=== PATIENT | female | born 1955 | race Caucasian/White ===

== ENCOUNTER → 2016-06-14 | Outpatient (CLI) | payer BC ==
[~2016-06-14] MED LIST: ALBU1AER9 INH; ASMIN/60 INH; CRFL PO; FAMO20TA12 PO; FAMO20TA9 PO; MULT-845 PO; OMEP40CA41 PO
--- NOTE | 2016-06-14 09:08 | DIAGNOSTIC IMAGING REPORT ---
CHEST 2 VIEWS ROUTINE CLINICAL HISTORY: Cough. COMPARISON STUDY: Chest CT November 04, 2015. FINDINGS: No pneumothorax or pleural effusion is present. Cardiac size is normal. Mediastinal contours are normal. There is no evidence of pulmonary edema. Mild reticulonodular interstitial thickening is noted. There is no confluent consolidation. There is no evidence of pulmonary edema. IMPRESSION: Mild reticulonodular interstitial thickening scattered throughout the lungs. Similar findings have been shown on prior studies and raise the possibility of an atypical infection. No consolidation. Electronically signed by: Navdeep Walton M.D. 06/14/2016 9:06 AM Dictated Date/Time: 06/14/2016 9:05 AM
== END | disposition home or self-care (01) ==
LOC: C.RAD1850 08:52
PROVIDERS: ATTEND Family Medicine
DX: R05 Cough (principal); Z87.01 Personal history of pneumonia (recurrent)

== ENCOUNTER → 2016-07-02 | Outpatient (CLI) | payer BC ==
--- NOTE | 2016-07-03 08:01 | MAMMOGRAPHY REPORT ---
BILATERAL DIGITAL SCREENING MAMMOGRAM TOMOSYNTHESIS WITH CAD: 07/02/2016 CLINICAL HISTORY: Routine screening examination. TECHNIQUE: Breast tomosynthesis in addition to standard 2D mammography was performed. Current study was also evaluated with a Computer Aided Detection (CAD) system. COMPARISON: Comparison is made to exams dated: 06/30/2015 mammogram, 06/23/2013 mammogram, 06/19/2012 m ammogram, 06/14/2011 mammogram, 06/13/2010 mammogram, and 06/14/2009 ultrasound - [facility]. BREAST COMPOSITION: The tissue of both breasts is heterogeneously dense, which may obscure small ma sses. FINDINGS: No suspicious mass, architectural distortion or cluster of microcalcifications is seen. IMPRESSION: ACR BI-RADS CATEGORY 1: NEGATIVE There is no mammographic evidence of malignancy. A 1 year screening mammogram is recommended. The p atient will receive written notification of the results. Approximately 10% of breast cancers are not detected with mammography. A negative mammographic repor t should not delay biopsy if a clinically suggestive mass is present. Rebecca mei/chava:07/02/2016 16:52:51 Television Repairman: Sandy DEVINE(R)(M), [facility] letter sent: Normal 1/2 BI-RADS Code: ACR BI-RADS Category 1: Negative
== END | disposition home or self-care (01) ==
LOC: C.MAMM 07:37
PROVIDERS: ATTEND Family Medicine
DX: Z12.31 Encounter for screening mammogram for malignant neoplasm of breast (principal)

== ENCOUNTER 2016-08-30 11:23 | Emergency (ER) | payer BC ==
[~2016-08-30] VITALS: Ht 167.6 cm; Wt 66.5 kg
[~2016-08-30 11:23] MED LIST changes: -CRFL PO; -FAMO20TA9 PO; -OMEP40CA41 PO
[2016-08-30 11:25] VITALS: TEMP 36.7; Ht 167.6 cm; Wt 66.5 kg
[2016-08-30] MEDS ORDERED: OMEP40CA41 PO (11:35)
--- NOTE | 2016-08-30 12:07 | DIAGNOSTIC IMAGING REPORT ---
SINGLE VIEW CHEST CLINICAL HISTORY: Dyspnea. FINDINGS: An AP, portable, upright chest radiograph is compared to study dated 06/14/2016. Correlation is made with chest CT dated 11/04/2015. The examination is degraded by portable technique and patient rotation. The cardiomediastinal silhouette is unremarkable. The lungs and pleural spaces are clear. No pneumothorax is seen. The bony thorax is grossly intact. IMPRESSION: No active disease in the chest. Electronically signed by: Sanjay Alvarez M.D. 08/30/2016 12:06 PM Dictated Date/Time: 08/30/2016 12:05 PM
[2016-08-30 12:10] VITALS: O2SAT 95
[2016-08-30 12:19] LABS: BASO % 0.6 %; BASO ABS # 0.03 K/uL (0-0.2); COMPLETE YES; EOS % 0.4 %; HEMATOCRIT 37.3 % (37-47); IG% 0.2 %; LYMPH % 31.5 %; LYMPH ABS # 1.62 K/uL (1.2-3.4); MEAN CORPUSCULAR HEMOGLOBIN 31.1 pg (25-34); MEAN CORPUSCULAR HGB CONC 35.4 g/dl (32-36); MONO % 5.1 %; NEUT % 62.2 %; PLATELET COUNT 231 K/uL (130-400); RED BLOOD COUNT 4.24 M/uL (4.2-5.4); WHITE BLOOD COUNT 5.14 K/uL (4.8-10.8)
[2016-08-30 12:40] LABS: ALT/SGPT 26 U/L (12-78); BLOOD UREA NITROGEN 13 mg/dl (7-18); BUN/CREATININE RATIO 17.2 (10-20); CARBON DIOXIDE 25 mmol/L (21-32); CHLORIDE 109 mmol/L (98-107); CREATININE 0.78 mg/dl (0.60-1.20); GLUCOSE 84 mg/dl (70-99); POTASSIUM 3.6 mmol/L (3.5-5.1); SODIUM 142 mmol/L (136-145)
[2016-08-30 12:50] LABS: ALB/GLOB RATIO 1.1 (0.9-2); ALKALINE PHOSPHATASE 73 U/L (45-117); AST/SGOT 15 U/L (15-37); CKMB/CK RATIO 1.1 (0-3.0); THYROID STIMULATING HORMONE 0.968 uIu/ml (0.300-4.500)
[2016-08-30 13:04] LABS: PARTIAL THROMBOPLASTIN RATIO 0.9; PROTHROMBIN TIME (PATIENT) 10.4 SECONDS (9.0-12.0)
[2016-08-30 13:31] LABS: CALCIUM 9.1 mg/dl (8.5-10.1)
[2016-08-30] MEDS ORDERED: LIDOCAINE HCL 2% VISC SOLN 20 ML UDC PO STA (13:34)
[2016-08-30] MEDS ORDERED: ALUMINUM/MAGNESIUM SUSP 30 ML UDC PO STA (13:34)
[2016-08-30 16:23] VITALS: BP 120/74; PULSE 72; O2SAT 95
--- NOTE | 2016-08-30 16:30 | EMERGENCY ROOM VISIT NOTE ---
History First contact with patient: 11:34 Chief Complaint: CHEST PAIN Stated Complaint: CHEST PAINS History of Present Illness The patient is a 61 year old female who presents to the Emergency Room with complaints of shortness of breath and central chest discomfort. The patient reports that her symptoms started this morning while in bed. The patient reports that she does not sleep soundly. The patient denies any pain radiating into the back or upper chest. She does report recent bilateral shoulder pain. She did work outside on Saturday, and does not know if she overexerted herself. The patient reports that when she was walking from her work to her parking lot yesterday, she did notice worsening chest discomfort and shortness of breath. The patient denies any recent upper respiratory infection. The patient reports that she has had a recent pulmonary function test because of her shortness of breath. She was told that the test was abnormal. They wanted to repeat the test next month. The patient reports that she developed upper respiratory symptoms in April. She was admitted to our facility with a normal cardiac workup. When she had persistent cough in May, she was treated with a Z- Dusty with improvement. Patient also has a known history of GERD, and reports the pain does feel somewhat like GERD. She has had an upper endoscopy last summer that was normal. At the current time the patient rates her discomfort a 4 out of 10. She denies any fevers or chills, diaphoresis or nausea. Review of Systems HEENT: Denies dizziness, visual problems, hearing loss, tinnitus. Denies difficulty swallowing or oral lesions. PULMONARY: Denies cough, shortness of breath, sputum production or hemoptysis. CARDIOVASCULAR: Denies chest pain, palpitations, dyspnea on exertion, orthopnea or peripheral edema. GASTROINTESTINAL: Denies diarrhea, constipation, nausea, vomiting, or abdominal pain. GENITOURINARY: Denies dysuria, frequency, urgency or nocturia. NEUROLOGIC: Denies history of epilepsy, CVA, TIA or chronic headaches. MUSCULOSKELETAL: Denies history of joint tenderness/swelling. SKIN: Denies rashes or lesions. PSYCHIATRIC: Denies history of depression or mental illness. ENDOCRINE: Denies history of diabetes, thyroid disorders, abnormal hair growth or sexual dysfunction. Past Medical/Surgical History Medical Problems: (1) Bilateral pneumonia (2) Borderline hyperlipidemia (3) Fx radius head-closed (4) Lumbosacral spondylosis (5) Pneumonia (6) Thoracic degenerative disc disease Surgical Problems: (1) H/O neck surgery Family History Alzheimer's disease Cancer Hypertension Social History Smoking Status: Never Smoker Alcohol Use: occasionally Marital Status: Housing Status: lives with significant other Occupation Status: employed Current/Historical Medications Scheduled Multiple Vitamins W/ Minerals (Centrum Silver Adult 50+), 1 TAB PO QAM Omeprazole (Prilosec), 40 MG PO DAILY Allergies Coded Allergies: No Known Allergies (Unverified , 08/30/16) Physical Exam Vital Signs Date Time Temp Pulse Resp B/P Pulse Ox O2 Delivery O2 Flow Rate FiO2 08/30/16 16:23 72 12 120/74 95 Room Air 08/30/16 15:05 69 16 97/73 98 Room Air 08/30/16 14:31 117/76 08/30/16 14:00 114/73 08/30/16 13:58 72 14 97 08/30/16 13:53 89 20 96 08/30/16 13:30 111/72 08/30/16 13:23 70 18 95 08/30/16 13:07 72 18 106/72 95 Room Air 08/30/16 13:00 106/72 08/30/16 12:53 73 23 97 08/30/16 12:41 70 08/30/16 12:40 72 18 114/73 95 Room Air 08/30/16 12:32 114/73 08/30/16 12:10 95 Room Air 08/30/16 12:10 95 Room Air 08/30/16 11:25 36.7 89 18 147/84 97 Room Air Physical Exam CONSTITUTIONAL: Healthy and well nourished. Alert and oriented X 3 with positive affect. She does not appear in any acute distress. HEENT: Normocephalic, atraumatic. Pupils equal, round and reactive. Ears and nares are clear. No scleral icterus or conjunctival injection/pallor. NECK: Full active range of motion without discomfort. No JVD or carotid bruits. RESPIRATORY: Clear to auscultation bilaterally with no wheezing, crackles, rhonchi or stridor. CARDIOVASCULAR: Irregular rate and rhythm with no murmurs, rubs or gallops. GASTROINTESTINAL: Bowel sounds present in all quadrants. Soft and nontender to palpation. MUSCULOSKELETAL: Full range of motion of all joints without discomfort. INTEGUMENTARY: No rash or other significant dermatologic conditions noted. NEUROLOGIC: No focal neurologic deficits noted. Medical Decision & Procedures ER Provider Diagnostic Interpretation: My interpretation of an ECG shows a sinus arrhythmia with a normal rate of 74 bpm. there are frequent premature atrial contractions. Comparison with a prior ECG dated 09/16/15 shows a more regular sinus rhythm. Repeat ECG in the emergency department after approximately 3.5 hours showed a regular normal sinus rhythm of 67 bpm without PACs or ST elevation. My interpretation of a portable chest x-ray does not show any consolidations, pneumothorax or cardiac prominence. Radiologist report is as follows: SINGLE VIEW CHEST CLINICAL HISTORY: Dyspnea. FINDINGS: An AP, portable, upright chest radiograph is compared to study dated 06/14/2016. Correlation is made with chest CT dated 11/04/2015. The examination is degraded by portable technique and patient rotation. The cardiomediastinal silhouette is unremarkable. The lungs and pleural spaces are clear. No pneumothorax is seen. The bony thorax is grossly intact. IMPRESSION: No active disease in the chest. Laboratory Results 08/30/16 12:10 Red Blood Count 4.24, Mean Corpuscular Volume 88.0, Mean Corpuscular Hemoglobin 31.1, Mean Corpuscular Hemoglobin Concent 35.4, Mean Platelet Volume 10.0, Neutrophils (%) (Auto) 62.2, Lymphocytes (%) (Auto) 31.5, Monocytes (%) (Auto) 5.1, Eosinophils (%) (Auto) 0.4, Basophils (%) (Auto) 0.6, Neutrophils # (Auto) 3.20, Lymphocytes # (Auto) 1.62, Monocytes # (Auto) 0.26, Eosinophils # (Auto) 0.02, Basophils # (Auto) 0.03 08/30/16 12:10 Test 08/30/16 12:10 08/30/16 15:08 White Blood Count 5.14 K/uL (4.8-10.8) Red Blood Count 4.24 M/uL (4.2-5.4) Hemoglobin 13.2 g/dL (12.0-16.0) Hematocrit 37.3 % (37-47) Mean Corpuscular Volume 88.0 fL (80-100) Mean Corpuscular Hemoglobin 31.1 pg (25-34) Mean Corpuscular Hemoglobin Concent 35.4 g/dl (32-36) Platelet Count 231 K/uL (130-400) Mean Platelet Volume 10.0 fL (7.4-10.4) Neutrophils (%) (Auto) 62.2 % Lymphocytes (%) (Auto) 31.5 % Monocytes (%) (Auto) 5.1 % Eosinophils (%) (Auto) 0.4 % Basophils (%) (Auto) 0.6 % Neutrophils # (Auto) 3.20 K/uL (1.4-6.5) Lymphocytes # (Auto) 1.62 K/uL (1.2-3.4) Monocytes # (Auto) 0.26 K/uL (0.11-0.59) Eosinophils # (Auto) 0.02 K/uL (0-0.5) Basophils # (Auto) 0.03 K/uL (0-0.2) RDW Standard Deviation 41.0 fL (36.4-46.3) RDW Coefficient of Variation 12.7 % (11.5-14.5) Immature Granulocyte % (Auto) 0.2 % Immature Granulocyte # (Auto) 0.01 K/uL (0.00-0.02) Prothrombin Time 10.4 SECONDS (9.0-12.0) Prothromb Time International Ratio 1.0 (0.9-1.1) Activated Partial Thromboplast Time 23.6 SECONDS (21.0-31.0) Partial Thromboplastin Ratio 0.9 D-Dimer 310 ug/L FEU (0-500) Anion Gap 8.0 mmol/L (3-11) Est Creatinine Clear Calc Drug Dose 71.8 ml/min Estimated GFR () 95.8 Estimated GFR (Non- 82.6 BUN/Creatinine Ratio 17.2 (10-20) Calcium Level 9.1 mg/dl (8.5-10.1) Total Bilirubin 0.3 mg/dl (0.2-1) Aspartate Amino Transf (AST/SGOT) 15 U/L (15-37) Alanine Aminotransferase (ALT/SGPT) 26 U/L (12-78) Alkaline Phosphatase 73 U/L (45-117) Total Creatine Kinase 76 U/L (26-192) Creatine Kinase MB 0.8 ng/ml (0.5-3.6) Creatine Kinase MB Ratio 1.1 (0-3.0) Pro-B-Type Natriuretic Peptide 81 pg/ml (0-900) Total Protein 7.1 gm/dl (6.4-8.2) Albumin 3.7 gm/dl (3.4-5.0) Globulin 3.4 gm/dl (2.5-4.0) Albumin/Globulin Ratio 1.1 (0.9-2) Thyroid Stimulating Hormone (TSH) 0.968 uIu/ml (0.300-4.500) Troponin I < 0.015 ng/ml (0-0.045) Medications Administered Medications (Trade) Dose Ordered Sig/Lyla Route Start Time Stop Time Status Last Admin Dose Admin Lidocaine HCl (Viscous Lidocaine 2% Soln) 10 ml NOW STAT PO 08/30/16 13:34 08/30/16 13:35 DC 08/30/16 13:52 10 ML Al Hydroxide/Mg Hydroxide (Maalox Susp) 30 ml NOW STAT PO 08/30/16 13:34 08/30/16 13:35 DC 08/30/16 13:51 30 ML ED Course Patient history and physical exam were performed. Nurse's notes were reviewed. Vital signs were reviewed and normal. O2 saturation is 97% on room air. IV access was established, and labs were drawn. ECG and portable chest x-ray were normal. Review of labs showed no acute abnormalities. Troponin and d-dimer were normal. After this workup was complete, a trial of GI cocktail was administered without any relief. Did suggest repeating ECG and troponin, and the patient was in agreement. Repeat ECG showed a regular normal sinus rhythm and continued normal troponin. The case was discussed with Dr. Bower, ED attending physician, who agrees with outpatient cardiology follow-up. The patient was encouraged to contact her PCP or metal melter within the next 2-3 days. She was instructed to avoid any strenuous activities. I did explain to the patient that I highly suspect that her symptoms are secondary to reflux, esophagitis, gastritis or similar etiology. I did encourage her to try taking Zantac 150 mg twice a day, and Maalox/Gaviscon as needed for additional symptomatic relief. Return to the emergency department for any progressively worsening chest pain, shortness of breath, diaphoresis, nausea or other concerning symptoms. The patient was happy with plan of care, voiced understanding of all discharge instructions, and denied any significant discomfort at the time of discharge. Medical Decision See previous section. The patient's workup today is not suggestive of myocardial infarction. I do feel that the patient is at low risk for PE given normal d-dimer. Chest x-ray does not suggest pneumonia, pneumothorax, cardiomegaly or subdiaphragmatic air. The patient does have a history of GERD, and although she did not have any relief with the GI cocktail, I suspect that her symptoms are secondary to similar etiology. At this point, I do not feel that hospitalist evaluation, observation or admission is needed. The patient reports that she will return for any worsening symptoms. Impression Primary Impression: Chest pain, central Additional Impression: History of gastroesophageal reflux (GERD) Departure Information Referrals Ashlyn Boogie M.D. (PCP) Patient Instructions My [facility] Problem Qualifiers
== END 2016-08-30 16:28 | disposition home or self-care (01) ==
LOC: C.EDB 11:25 → C.EDA 16:28
DX: R07.9 Chest pain, unspecified (principal); K21.9 Gastro-esophageal reflux disease without esophagitis; E78.5 Hyperlipidemia, unspecified; Z87.81 Personal history of (healed) traumatic fracture; M51.24 Other intervertebral disc displacement, thoracic region; Z98.890 Other specified postprocedural states; Z79.899 Other long term (current) drug therapy; Z80.9 Family history of malignant neoplasm, unspecified; Z82.49 Family history of ischemic heart disease and other diseases of the circulatory system

== ENCOUNTER 2017-01-18 07:24 | Emergency (ER) | payer BC ==
[~2017-01-18] VITALS: Ht 167.6 cm; Wt 66.4 kg
[~2017-01-18 07:24] MED LIST changes: -ALBU1AER9 INH; -ASMIN/60 INH; -FAMO20TA12 PO; +OMEP40CA41 PO
[2017-01-18 07:25] VITALS: TEMP 36.9; Ht 167.6 cm; Wt 66.4 kg
[2017-01-18] MEDS ORDERED: SODIUM CHLORIDE 0.9% 1000ML 1,000 ML IV STA (07:45)
--- NOTE | 2017-01-18 07:50 | EMERGENCY ROOM VISIT NOTE ---
History First contact with patient: 07:30 Chief Complaint: CHEST PAIN Stated Complaint: CHEST PAIN Nursing Triage Summary: Pt c/o mid sternal cp that began 0330 this am. SOB. Cough x 2 days, non productive. Hx GERD and Pneumonia History of Present Illness The patient is a 61 year old female who presents to the Emergency Room with complaints of chest pain. The patient states that she has had a cough for a few days. She states that her granddaughter had an upper respiratory tract infection. She states that she was coughing during the night and around 3:30 AM developed substernal chest pain. She states it is associated with shortness of breath. The dyspnea is worse with exertion. The chest pain is worse with movement, changes position and activity. The patient states the pain is constant. She rates her discomfort an 8/10. The patient has had similar episodes in the past and has been diagnosed with pneumonia and GERD. The patient's sister has a history of sarcoidosis. The patient denies any fevers or chills. She denies any abdominal pain, nausea or vomiting. The patient denies any swelling or pain in the extremities. She denies any recent travel or surgery. She denies any personal or family history of DVT or PE. She had a stress test approximately 2 years ago which was negative. She denies any personal history of coronary artery disease, diabetes, hypertension or hyperlipidemia. She denies any family history of coronary artery disease. Review of Systems A 10 system review of systems was completed with positives and pertinent negatives listed in the HPI. Past Medical/Surgical History Medical Problems: (1) Bilateral pneumonia (2) Borderline hyperlipidemia (3) Fx radius head-closed (4) Lumbosacral spondylosis (5) Pneumonia (6) Thoracic degenerative disc disease Surgical Problems: (1) H/O neck surgery Family History Alzheimer's disease Cancer Hypertension Social History Smoking Status: Never Smoker Alcohol Use: occasionally Marital Status: Housing Status: lives with significant other Occupation Status: employed Current/Historical Medications Scheduled Famotidine (Pepcid), 20 MG PO QPM Sucralfate (Carafate), 10 ML PO BID Physical Exam Vital Signs Date Time Temp Pulse Resp B/P (MAP) Pulse Ox O2 Delivery O2 Flow Rate FiO2 01/18/17 10:44 82 16 130/77 96 01/18/17 08:50 78 16 113/72 96 Room Air 01/18/17 08:07 83 01/18/17 07:29 97 Room Air 01/18/17 07:25 36.9 95 16 134/76 96 Room Air Physical Exam VITALS: Vitals are noted on the nurse's note and reviewed by myself. Vital signs stable. The patient is afebrile. She is not tachycardic, tachypneic or hypoxic. GENERAL: [age]-year-old female, in no acute distress, nondiaphoretic, well- developed well-nourished. SKIN: The skin was without rashes, erythema, edema, or bruising. There is no tenting of the skin. Capillary reflex less than 2 seconds. HEAD: Normocephalic atraumatic. EARS: External auditory canals clear, tympanic membranes pearly johansen without erythema or effusion bilaterally. EYES: Pupils equal round and reactive to light and accommodation. Conjunctivae without injection, sclerae without icterus. Extraocular movements intact. NOSE: Patent, turbinates without inflammation or discharge. MOUTH: Mucous membranes moist. Tonsils are not enlarged. Pharynx without erythema or exudate. Uvula midline. Airway patent. Tongue does not deviate. NECK: Supple without nuchal rigidity. No JVD. HEART: Regular rate and rhythm without murmurs gallops or rubs. LUNGS: There are bibasilar mild rales appreciated to auscultation. No retractions or accessory muscle use. ABDOMEN: Positive bowel sounds x 4. Soft, nontender, without masses or organomegaly. MUSCULOSKELETAL: No muscle atrophy, erythema, or edema noted. Full range of motion in all extremities. Strength 5/5 throughout. NEURO: Patient was alert and oriented to person place and time. No focal neurological deficits. Medical Decision & Procedures ER Provider Diagnostic Interpretation: SINGLE VIEW CHEST CLINICAL HISTORY: Atypical chest pain. FINDINGS: An AP, portable, upright chest radiograph is compared to study dated 08/30/2016. The examination is degraded by portable technique and patient rotation. The cardiomediastinal silhouette is unremarkable. The lungs and pleural spaces are clear. No pneumothorax is seen. The bony thorax is grossly intact. IMPRESSION: No active disease in the chest. Laboratory Results 01/18/17 07:50 Red Blood Count 4.20, Mean Corpuscular Volume 88.6, Mean Corpuscular Hemoglobin 31.9, Mean Corpuscular Hemoglobin Concent 36.0, Mean Platelet Volume 10.1, Neutrophils (%) (Auto) 65.0, Lymphocytes (%) (Auto) 24.5, Monocytes (%) (Auto) 8.4, Eosinophils (%) (Auto) 1.7, Basophils (%) (Auto) 0.2, Neutrophils # (Auto) 3.50, Lymphocytes # (Auto) 1.32, Monocytes # (Auto) 0.45, Eosinophils # (Auto) 0.09, Basophils # (Auto) 0.01 01/18/17 07:50 Test 01/18/17 07:50 01/18/17 07:55 01/18/17 09:30 White Blood Count 5.38 K/uL (4.8-10.8) Red Blood Count 4.20 M/uL (4.2-5.4) Hemoglobin 13.4 g/dL (12.0-16.0) Hematocrit 37.2 % (37-47) Mean Corpuscular Volume 88.6 fL (80-100) Mean Corpuscular Hemoglobin 31.9 pg (25-34) Mean Corpuscular Hemoglobin Concent 36.0 g/dl (32-36) Platelet Count 206 K/uL (130-400) Mean Platelet Volume 10.1 fL (7.4-10.4) Neutrophils (%) (Auto) 65.0 % Lymphocytes (%) (Auto) 24.5 % Monocytes (%) (Auto) 8.4 % Eosinophils (%) (Auto) 1.7 % Basophils (%) (Auto) 0.2 % Neutrophils # (Auto) 3.50 K/uL (1.4-6.5) Lymphocytes # (Auto) 1.32 K/uL (1.2-3.4) Monocytes # (Auto) 0.45 K/uL (0.11-0.59) Eosinophils # (Auto) 0.09 K/uL (0-0.5) Basophils # (Auto) 0.01 K/uL (0-0.2) RDW Standard Deviation 42.0 fL (36.4-46.3) RDW Coefficient of Variation 13.1 % (11.5-14.5) Immature Granulocyte % (Auto) 0.2 % Immature Granulocyte # (Auto) 0.01 K/uL (0.00-0.02) Prothrombin Time 10.0 SECONDS (9.0-12.0) Prothromb Time International Ratio 0.9 (0.9-1.1) Activated Partial Thromboplast Time 24.7 SECONDS (21.0-31.0) Partial Thromboplastin Ratio 1.0 D-Dimer 270 ug/L FEU (0-500) Anion Gap 6.0 mmol/L (3-11) Est Creatinine Clear Calc Drug Dose 61.5 ml/min Estimated GFR () 79.5 Estimated GFR (Non- 68.6 BUN/Creatinine Ratio 11.2 (10-20) Calcium Level 9.0 mg/dl (8.5-10.1) Magnesium Level 2.2 mg/dl (1.8-2.4) Total Bilirubin 0.4 mg/dl (0.2-1) Aspartate Amino Transf (AST/SGOT) 14 U/L (15-37) Alanine Aminotransferase (ALT/SGPT) 16 U/L (12-78) Alkaline Phosphatase 82 U/L (45-117) Total Protein 7.4 gm/dl (6.4-8.2) Albumin 3.8 gm/dl (3.4-5.0) Globulin 3.6 gm/dl (2.5-4.0) Albumin/Globulin Ratio 1.1 (0.9-2) Thyroid Stimulating Hormone (TSH) 1.470 uIu/ml (0.300-4.500) Urine Color YELLOW Urine Appearance CLEAR (CLEAR) Urine pH 6.5 (4.5-7.5) Urine Specific Randolph 1.007 (1.000-1.030) Urine Protein NEG (NEG) Urine Glucose (UA) NEG (NEG) Urine Ketones NEG (NEG) Urine Occult Blood NEG (NEG) Urine Nitrite NEG (NEG) Urine Bilirubin NEG (NEG) Urine Urobilinogen NEG (NEG) Urine Leukocyte Esterase SMALL (NEG) Urine WBC (Auto) 1-5 /hpf (0-5) Urine RBC (Auto) 0-4 /hpf (0-4) Urine Hyaline Casts (Auto) 0 /lpf (0-5) Urine Epithelial Cells (Auto) 0-5 /lpf (0-5) Urine Bacteria (Auto) NEG (NEG) Troponin I < 0.015 ng/ml (0-0.045) Medications Administered Medications (Trade) Dose Ordered Sig/Lyla Route Start Time Stop Time Status Last Admin Dose Admin Sodium Chloride 1,000 ml @ 125 mls/hr Q8H STAT IV 01/18/17 07:45 01/18/17 11:09 DC 01/18/17 08:04 125 MLS/HR Procedure The patient was monitored on a quality assurance monitor. They maintained a normal sinus rhythm without ectopy. ECG Indication: chest pain Rate (beats per minute): 89 Rhythm: normal sinus Findings: nonspecific-ST abn Change: no significant change ED Course The patient was seen and examined. Previous visits were reviewed. The patient does not have a fever or leukocytosis. She does not have any significant electrolyte abnormalities. Initial troponin and repeat troponin were both negative. The second troponin was 6 hours after the onset of pain. TSH was within normal limits. INR was 0.9. D-dimer was negative. Urinalysis was negative. EKG does not reveal any acute arrhythmia or ischemia. Chest x-ray does not reveal any acute abnormality The patient was hydrated normal saline. The patient presents to the emergency department with substernal chest pain. She has had a cough. There is no evidence for pneumonia on chest x-ray. She stated that she had been coughing overnight and then woke up and noticed the pain. It is possible that this could be musculoskeletal in nature. Additionally, the patient has a history of GERD. She states it feels more similar to her exacerbations of GERD. She has taken herself off of omeprazole because she has read of the possible side effects of the medication. She has been taking famotidine. I recommended that we try Carafate. The patient was agreeable to this and was given a prescription. The patient should follow-up with her family doctor on Saturday and she has an appointment scheduled. She should also follow-up with gastroenterology if symptoms persist. She should return to the emergency department sooner with any worsening pain. The case was discussed with Dr. Harvey who agrees with the assessment and management plan. Medical Decision DIFFERENTIAL DIAGNOSIS: Aortic dissection, myocarditis, pericarditis, cervical disc disease, costochondritis, herpes zoster, rib fracture, pleuritis, pneumonia , pulmonary embolus, tension pneumothorax, anxiety disorder, somatoform disorder , choledocholithiasis, status, esophagitis, esophageal spasm, esophageal reflux , esophageal rupture, pancreatitis, peptic ulcer disease, cardiac ischemia, ST elevation [place], acute coronary syndrome, arrhythmia, coronary artery vasospasm. vavular heart disease, coronary artery disease, among others. [place] Drug Monitoring Program Search Results: patient reviewed within database Medication Reconcilliation Current Medication List: was personally reviewed by me Blood Pressure Screening Patient's blood pressure: Normal blood pressure Blood pressure disposition: Did not require urgent referral Impression Primary Impression: Substernal precordial chest pain Additional Impressions: GERD (gastroesophageal reflux disease) Cough Departure Information Dispostion Home / Self-Care Condition GOOD Prescriptions Sucralfate (CARAFATE) 1 Gm/10 Ml Akua 10 ML PO BID for 10 Days, #200 ML 1 Refill Prov: Soraya Juarez PA-C 01/18/17 Referrals Ashlyn Boogie M.D. (PCP) Patient Instructions Chest Pain - [facility], ED GERD, My [facility] Additional Instructions Try Carafate for GERD symptoms Follow up with your family doctor on Saturday as scheduled Return to the emergency department sooner with any worsening pain, fevers, productive cough or generalized worsening symptoms Problem Qualifiers
[2017-01-18 08:02] LABS: BASO % 0.2 %; BASO ABS # 0.01 K/uL (0-0.2); COMPLETE YES; EOS % 1.7 %; HEMATOCRIT 37.2 % (37-47); IG% 0.2 %; LYMPH % 24.5 %; LYMPH ABS # 1.32 K/uL (1.2-3.4); MEAN CELL VOLUME 88.6 fL (80-100); MEAN CORPUSCULAR HEMOGLOBIN 31.9 pg (25-34); MEAN PLATELET VOLUME 10.1 fL (7.4-10.4); MONO % 8.4 %; PLATELET COUNT 206 K/uL (130-400); WHITE BLOOD COUNT 5.38 K/uL (4.8-10.8)
[2017-01-18 08:11] LABS: URINE APPEARANCE CLEAR (CLEAR); URINE BILIRUBIN NEG (NEG); URINE COLOR YELLOW; URINE EPITHELIAL CELL AUTO 0-5 /lpf (0-5); URINE NITRITE NEG (NEG); URINE PH 6.5 (4.5-7.5); URINE SPECIFIC GRAVITY 1.007 (1.000-1.030); UROBILINOGEN NEG (NEG); ZZUR CULT IF INDIC CLEAN CATCH NO
[2017-01-18 08:13] LABS: MANUAL MICROSCOPIC REQUIRED? NO; REVIEW REQ? NO
--- NOTE | 2017-01-18 08:13 | DIAGNOSTIC IMAGING REPORT ---
SINGLE VIEW CHEST CLINICAL HISTORY: Atypical chest pain. FINDINGS: An AP, portable, upright chest radiograph is compared to study dated 08/30/2016. The examination is degraded by portable technique and patient rotation. The cardiomediastinal silhouette is unremarkable. The lungs and pleural spaces are clear. No pneumothorax is seen. The bony thorax is grossly intact. IMPRESSION: No active disease in the chest. Electronically signed by: Sanjay Alvarez M.D. 01/18/2017 8:12 AM Dictated Date/Time: 01/18/2017 8:11 AM
[2017-01-18 08:21] LABS: ALT/SGPT 16 U/L (12-78); BLOOD UREA NITROGEN 10 mg/dl (7-18); BUN/CREATININE RATIO 11.2 (10-20); CARBON DIOXIDE 27 mmol/L (21-32); CHLORIDE 107 mmol/L (98-107); CREATININE 0.91 mg/dl (0.60-1.20); GLUCOSE 131 mg/dl (70-99); MAGNESIUM 2.2 mg/dl (1.8-2.4); POTASSIUM 3.8 mmol/L (3.5-5.1); SODIUM 140 mmol/L (136-145)
[2017-01-18 08:29] LABS: INR 0.9 (0.9-1.1)
[2017-01-18 08:32] LABS: ALB/GLOB RATIO 1.1 (0.9-2); ALKALINE PHOSPHATASE 82 U/L (45-117); AST/SGOT 14 U/L (15-37)
[2017-01-18] MEDS ORDERED: FAMO20TA9 PO (08:37)
[2017-01-18] MEDS ORDERED: CRFL PO (10:29)
[2017-01-18 10:44] VITALS: BP 130/77; PULSE 82; O2SAT 96
== END 2017-01-18 10:44 | disposition home or self-care (01) ==
LOC: C.EDB 07:25 → C.EDA 10:44
DX: R07.2 Precordial pain (principal); K21.9 Gastro-esophageal reflux disease without esophagitis; R05 Cough; Z87.01 Personal history of pneumonia (recurrent); Z98.890 Other specified postprocedural states; Z82.0 Family history of epilepsy and other diseases of the nervous system; Z82.49 Family history of ischemic heart disease and other diseases of the circulatory system; Z79.899 Other long term (current) drug therapy

== ENCOUNTER → 2017-05-01 | Outpatient (CLI) | payer OTHER ==
[~2017-05-01] MED LIST changes: +AMOX875T PO; +ASCO1CAP3 PO; +CHOL1000 PO; +CRFL PO; +FAMO20TA9 PO; +FLUT0.15 NAE; +GUAI1TAB55 PO; -MULT-845 PO; -OMEP40CA41 PO; +PRAM0.259 PO; +PRED20TA PO
== END | disposition home or self-care (01) ==
LOC: C.LAB1850 09:22
PROVIDERS: ATTEND Internal Medicine Pulmonary Disease
DX: G25.81 Restless legs syndrome (principal)

== ENCOUNTER → 2017-07-04 | Outpatient (CLI) | payer OTHER ==
[~2017-07-04] MED LIST changes: -AMOX875T PO; -ASCO1CAP3 PO; -CHOL1000 PO; -FLUT0.15 NAE; -GUAI1TAB55 PO; -PRAM0.259 PO; -PRED20TA PO
--- NOTE | 2017-07-04 15:05 | MAMMOGRAPHY REPORT ---
BILATERAL DIGITAL SCREENING MAMMOGRAM TOMOSYNTHESIS WITH CAD: 07/04/2017 CLINICAL HISTORY: Routine screening. Patient has no complaints. TECHNIQUE: Breast tomosynthesis in addition to standard 2D mammography was performed. Current study was also evaluated with a Computer Aided Detection (CAD) system. COMPARISON: Comparison is made to exams dated: 07/02/2016 mammogram, 06/30/2015 mammogram, 06/29/2014 mamm ogram, 06/23/2013 mammogram, 06/19/2012 mammogram, and 06/14/2011 mammogram - [facility] er. BREAST COMPOSITION: The tissue of both breasts is heterogeneously dense, which may obscure small mas ses. FINDINGS: No suspicious masses, calcifications, or areas of architectural distortion are noted in ei ther breast. There has been no significant interval change compared to prior exams. IMPRESSION: ACR BI-RADS CATEGORY 1: NEGATIVE There is no mammographic evidence of malignancy. A 1 year screening mammogram is recommended. The pa tient will receive written notification of the results. Approximately 10% of breast cancers are not detected with mammography. A negative mammographic report should not delay biopsy if a clinically suggestive mass is present. Vijaya Soliz M.D. /:07/04/2017 08:28:51 Merchandise Pickup/Receiving Associate: Sandy Hurley, [facility] letter sent: Normal 1/2 BI-RADS Code: ACR BI-RADS Category 1: Negative
== END | disposition home or self-care (01) ==
LOC: C.MAMM 08:02
PROVIDERS: ATTEND Family Medicine
DX: Z12.31 Encounter for screening mammogram for malignant neoplasm of breast (principal)

== ENCOUNTER 2025-02-07 06:04 | Inpatient (IN) ==
--- NOTE | 2025-02-07 06:25 | Emergency Department Note ---
Impression & Plan Acute hypoxemic respiratory failure, Chest pain ED Provider Note NAME: ANA CHAIDEZ AGE: 69 SEX: F : 1955 ARRIVES VIA: Walk-In INFORMANT: Patient, ED PROVIDER(S): Miguel Angel Raymond MD CHIEF COMPLAINT: Chest pain MEDICAL DECISION MAKING: Patient presents due to concern for upper chest pains nonexertional which she reports feels similar to when she had developed a pneumonia. IV was established and blood work was obtained. The patient is supposed to be taking an inhaler she was trialed with a DuoNeb treatment and a dose rides as well. Initial EKG without obvious evidence of ischemia. Patient's blood work shows a normal white count hemoglobin and platelet count kidney function with a creat of 1.21. Not significantly changed from priors. Troponin negative. Patient was intermittently hypoxic Illig was feeling improved. CT angiography was performed to better evaluate the chest as the initial chest x-ray was unremarkable. CT angio of the chest no evidence of PE but calling interstitial pulmonary edema as well as nonspecific peripheral tree-in-bud airspace opacities which could be infectious or inflammatory. I did treat the patient for possible pneumonia with IV Rocephin and azithromycin. Given the patient's hypoxia additional DuoNebs ordered. I did speak the on-call hospitalist Dr. Santos. Patient was initially hesitant about staying in hospital as her has Parkinson's. Further discussion with the hospitalist though she is amenable to staying for inpatient treatment. Patient was ordered IV morphine to help with her chest pain. Critical Care: I have personally spent 45 minutes of critical care time in direct management of this patient. This includes bedside care, interpretation of diagnostic studies, and testing, discussion with consultants, patient, and family members, and other require inpatient management activities. This 45 minutes is in excess of all separately billable procedures. Discussion w/ other healthcare providers: Dr. Santos inpatient medicine service Prior /Outside records reviewed: Reviewed part of a rheumatology visit note from December 09 Dr. Brown that the patient may have microscopic polyangiitis may consider rituximab prednisone and back pain. Pending evaluation via [facility]. Differential diagnosis: Cardiac ischemia, aortic dissection, pulmonary embolism, pneumothorax, pneumonia, pericarditis, myocarditis, GERD, cholecystitis, pancreatitis, musculoskeletal, as well as other pathologies were considered. Diagnostics, as interpreted by me: ECG: Sinus, possible short SD, normal QRS, left axis deviation no obvious ST elevations. Cardiac monitoring: An order was placed for continuous cardiac monitoring. The monitor shows a rate of 89 with sinus rhythm. Patient was placed on pulse oximetry Medical decision rules: none Imaging studies: I informally interpreted the patient's chest x-ray does not show evidence of obvious pneumonia with formal report to follow. HPI: Patient presents due to concern for chest pains. The patient describes it as constant worse with taking a big deep breath and noted in the upper chest. The patient states this feels similar to when she had pneumonia back in August. The patient states that she did have a follow-up with rheumatology and Dr. Brown and thought that maybe it was some sort of inflammatory cause like microscopic polyangiitis. but to have a follow-up at [facility] and they thought that maybe it was something else including maybe a vasculitis. Patient was seen by pulmonology and the patient was to be trialed on an inhaler with steroids but has yet to obtain this but believes that her pharmacy has been to get this tomorrow. Patient denies any leg swelling or calf pain no history of DVT or PE. Patient denies any recent surgeries procedures or hospitalizations and no recent long car plane travel. The patient states that she does have an occasional cough and that her has Parkinson's and has an occasional cough but denies any fevers or chills. No leg swelling. Patient states that she does suffer from some chronic shortness of breath but this is unchanged. PAST MEDICAL HISTORY: See Below PAST SURGICAL HISTORY: See Below SOCIAL HISTORY: See Below HOME MEDICATIONS: See Below ALLERGIES: See Below VITALS: See Below PHYSICAL EXAMINATION: GENERAL: NAD, non-toxic. Wearing glasses. EYE EXAM: Normal conjunctiva. PERRL, no anisocoria and EOM's grossly intact w/o pain. OROPHARYNX: Moist mucus membranes, grossly normal dentition. NECK: Trachea midline, no stridor. LUNGS: Clear to auscultation. Normal chest wall mechanics. HEART: NSR, no MRG. ABDOMEN: Abdomen soft, non-tender, no masses, no rebound or guarding. BACK: No CVA TTP. SKIN: No rashes and no bruising. UPPER EXTREMITIES: Upper extremities are grossly normal. LOWER EXTREMITIES: Grossly normal, no edema. Negative Homans' sign bilaterally. NEURO EXAM: Awake and alert, follows commands, no obvious facial asymmetry, normal speech, moves all 4 extremities. Past Med/Surg History Problem List (Updated 02/07/25 @ 15:06 by Miguel Angel Raymond MD) Chest pain (Acute) Acute hypoxemic respiratory failure (Acute) Hypoxic respiratory failure Microscopic polyangiitis Abnormal CT scan of lung 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 Obstructive lung disease Hematuria Encounter for pre-operative examination Bilateral pneumonia Chest pain (Acute) Substernal precordial chest pain (Acute) Obstructive pattern present on pulmonary function testing Pulsatile tinnitus Sensorineural hearing loss (SNHL) of both ears Abnormal PFT Dyspnea Borderline hyperlipidemia (Chronic) no meds Lumbosacral spondylosis (Chronic) Thoracic degenerative disc disease (Chronic) COPD (chronic obstructive pulmonary disease) Tinnitus of right ear Restless leg Medical History GERD (gastroesophageal reflux disease) Pneumonia 2014 Fx radius head-closed many years ago fell on ice and used sling Surgical History H/O neck surgery Cyst removal September 1981 Family History Sister Family history of adverse reaction to anesthesia Cancer Allergies Mother Hypertension Grandfather Asthma Brother Colorectal cancer Other No family history of bleeding disorder Sarcoidosis Social History Smoking Status: Never smoker Second Hand Exposure: No; Do You Dip or Chew Tobacco: No; Hx Alcohol Use: Yes Alcohol type: wine Alcohol Intake Frequency Comment: one or twice a month Hx Substance Use: No Preferred Language: [place] Communication Ability: Effective Enterprise Integration Architect Required: No Beliefs That Will Affect Care: None marital status: Current Living Situation: Spouse Current Living Situation Comment: lives at home with current occupational status: retired Other Information That Helps Us Care for You: No Feels Safe at Home: Yes Safety Concerns: Feels Safe At This Time Assistive Devices: Glasses Allergies Allergies Allergy/AdvReac Type Severity Reaction Status Date / Time amoxicillin Allergy Intermediate hives Verified 12/09/24 08:30 Home Meds Home Medications Medication Instructions Recorded Confirmed cholecalciferol (vitamin D3) 25 25 mcg PO QPM 03/09/21 02/07/25 mcg (1,000 unit) chewable tablet (Vitamin D3) aspirin 81 mg capsule 81 mg PO QPM 06/15/24 02/07/25 omeprazole 40 mg capsule,delayed 40 mg PO DAILY 12/08/24 02/07/25 release pramipexole 0.25 mg tablet 0 mg PO HS 02/07/25 02/07/25 Previous Rx's Medication Instructions Recorded inhalational spacing device #1 ea 04/24/24 (Aerochamber MV spacer) tiotropium 2.5 mcg-olodaterol 2.5 2 puff inhalation DAILY #4 grams 11/18/24 mcg/actuation mist for inhalation (Stiolto Respimat) Results & Data (ED) Vital Signs Vital Signs - 24 hr 02/07/25 06:13 02/07/25 06:26 02/07/25 06:36 Temperature 36.8 C Temperature Source Temporal Artery Scan Pulse Rate 88 78 Pulse Rate [Right Finger] Pulse Rhythm [Right Finger] Respiratory Rate 20 17 Respiratory Effort / Characteristics Non-Labored Respiratory Depth Normal Respiratory Pattern Blood Pressure 160/92 H Blood Pressure [Right Arm] Blood Pressure Mean 114 Blood Pressure Mean [Right Arm] Pulse Oximetry 96 96 96 Oxygen Delivery Method Room Air Room Air Room Air Sepsis Recent Fever Within 48 Hours No Sepsis New/Unexplained Change in Mental Status No Sepsis Action Taken by Nursing No Action Required 02/07/25 06:36 02/07/25 07:32 02/07/25 08:31 Temperature 36.6 C Temperature Source Oral Pulse Rate 82 Pulse Rate [Right Finger] 84 84 Pulse Rhythm [Right Finger] Respiratory Rate 18 20 Respiratory Effort / Characteristics Non-Labored Spontaneous Non-Labored Respiratory Depth Normal Normal Respiratory Pattern Regular Blood Pressure Blood Pressure [Right Arm] 151/88 H 139/90 Blood Pressure Mean Blood Pressure Mean [Right Arm] 109 106 Pulse Oximetry 94 90 Oxygen Delivery Method Room Air Room Air Sepsis Recent Fever Within 48 Hours Sepsis New/Unexplained Change in Mental Status Sepsis Action Taken by Nursing 02/07/25 08:34 02/07/25 09:01 02/07/25 09:19 Temperature Temperature Source Pulse Rate Pulse Rate [Right Finger] 78 103 H Pulse Rhythm [Right Finger] Respiratory Rate 20 20 Respiratory Effort / Characteristics Non-Labored Non-Labored Respiratory Depth Normal Normal Respiratory Pattern Blood Pressure Blood Pressure [Right Arm] 147/84 H 121/75 Blood Pressure Mean Blood Pressure Mean [Right Arm] 105 90 Pulse Oximetry 92 87 L 92 Oxygen Delivery Method Room Air Room Air Room Air Sepsis Recent Fever Within 48 Hours Sepsis New/Unexplained Change in Mental Status Sepsis Action Taken by Nursing 02/07/25 10:27 Temperature Temperature Source Pulse Rate Pulse Rate [Right Finger] 98 H Pulse Rhythm [Right Finger] Regular Respiratory Rate 18 Respiratory Effort / Characteristics Respiratory Depth Normal Respiratory Pattern Blood Pressure Blood Pressure [Right Arm] 164/88 H Blood Pressure Mean Blood Pressure Mean [Right Arm] 113 Pulse Oximetry 94 Oxygen Delivery Method Room Air Sepsis Recent Fever Within 48 Hours Sepsis New/Unexplained Change in Mental Status Sepsis Action Taken by [facility] Medications Current Medication List: was personally reviewed by me Laboratory Data Attestation: I reviewed the patient's lab results. 02/07/25 06:07 02/07/25 06:07 Lab Results 02/07/25 02/07/25 Range/Units 06:07 07:35 WBC 5.28 (4.8-10.8) K/ul RBC 4.33 (4.20-5.40) M/uL Hgb 12.7 (12.0-16.0) g/dl Hct 37.3 (37.0-47.0) % MCV 86.1 (80.0-100.0) fL MCH 29.3 (25.0-34.0) pg MCHC 34.0 (32.0-36.0) g/dL RDW Std Deviation 40.2 (36.4-46.3) fL RDW Coeff of Vee 12.8 (11.5-14.5) % Plt Count 262 (130-400) K/uL MPV 10.1 (9.4-12.4) fL Immature Gran % (Auto) 0.4 % Neut % (Auto) 58.5 % Lymph % (Auto) 29.9 % [place] % (Auto) 7.6 % Eos % (Auto) 3.0 % Baso % (Auto) 0.6 % Neut # (Auto) 3.09 (1.40-6.50) K/uL Lymph # (Auto) 1.58 (1.20-3.40) K/uL [place] # (Auto) 0.40 (0.11-0.59) K/uL Eos # (Auto) 0.16 (0.00-0.50) K/uL Baso # (Auto) 0.03 (0.00-0.20) K/uL Immature Gran # (Auto) 0.02 (0.01-0.20) K/uL ESR 21 (0-30) mm/hr PT 9.8 (9.0-12.0) Seconds INR 0.9 (0.9-1.1) APTT 23 (21-31) Seconds PTT Ratio 0.8 Sodium 139 (136-145) mmol/L Potassium 4.1 (3.5-5.1) mmol/L Chloride 106 (98-107) mmol/L Carbon Dioxide 26 (21-32) mmol/L Anion Gap 7 (3-11) BUN 22 (6-23) mg/dl Creatinine 1.21 H (0.6-1.2) mg/dl Est Cr Clr Drug Dosing 43.2 ml/min eGFR 48.82 BUN/Creatinine Ratio 18.2 (10-20) Glucose 92 (70-99(Fasting)) mg/dl Calcium 9.2 (8.6-10.3) mg/dl Total Bilirubin 0.4 (0.2-1.0) mg/dl AST 14 (13-39) U/L ALT 14 (7-52) U/L Alkaline Phosphatase 71 (34-104) U/L Troponin I High Sens < 2.3 (0-14) pg/ml C-Reactive Protein 0.62 H (0-0.5) mg/dl Total Protein 7.0 (6.0-8.3) gm/dl Albumin 4.4 (3.4-5.0) gm/dl Globulin 2.6 (2.5-4.0) gm/dl Albumin/Globulin Ratio 1.7 (0.9-2) Lipase 21 (11-82) U/L SARS-CoV-2 (PCR) NEGATIVE (Negative) Influenza Type A (PCR) Negative (Neg) Influenza Type B (PCR) Negative (Neg) RSV (RT-PCR) Negative (Neg) Administered Medications Discontinued Medications Albuterol (Albut/Ipratrop 3mg/0.5mg Neb 3 Ml Vial) 3 ml NEB NOW STA; Protocol Stop: 02/07/25 06:33 Last Admin: 02/07/25 06:49 Dose: 3 ml Documented By: ABILIO Albuterol (Albut/Ipratrop 3mg/0.5mg Neb 3 Ml Vial) 6 ml NEB NOW STA; Protocol Stop: 02/07/25 08:35 Last Admin: 02/07/25 08:50 Dose: 6 ml Documented By: JEY Azithromycin (Azithromycin 250 Mg Tab) 500 mg PO NOW ONE Stop: 02/07/25 08:52 Last Admin: 02/07/25 09:15 Dose: 500 mg Documented By: JEY Ceftriaxone Sodium (Rocephin) 2,000 mg in 50 mls @ 100 mls/hr IV NOW STA Stop: 02/07/25 09:20 Last Infusion: 02/07/25 10:00 Dose: Infused Documented By: Admin: 02/07/25 09:15 Dose: 100 mls/hr Documented By: JEY Ioversol (Optiray 320 125ml) 119 ml IV ONCE ONE Stop: 02/07/25 08:17 Last Admin: 02/07/25 08:17 Dose: 119 ml Documented By: MARY Methylprednisolone (Methylprednisolone 125 Mg/2 Ml Vial) 60 mg IV NOW STA Stop: 02/07/25 06:33 Last Admin: 02/07/25 06:48 Dose: 60 mg Documented By: ABILIO Morphine Sulfate (Morphine Sulfate 4 Mg/Ml 1 Ml Carp\Vial) 4 mg IV NOW STA Stop: 02/07/25 08:35 Last Admin: 02/07/25 08:50 Dose: 4 mg Documented By: JEY Imaging Data Radiologist's Impression: Chest X-Ray 02/07/25 06:26 HISTORY: Chest pain TECHNIQUE: Portable AP radiograph of the chest COMPARISON: Chest radiograph dated 10/01/2024 FINDINGS: spinning room worker leads overlie the chest. No focal lung consolidation. No pneumothorax or pleural effusion. Normal heart size. Left-sided aortic arch. Midline trachea. No acute osseous abnormality. The included upper abdomen is unremarkable. IMPRESSION: No acute cardiopulmonary findings. Electronically signed by Dionte Demarco 02-07-2025 08:20 AM Chest CTA 02/07/25 07:40 HISTORY: Chest pain and shortness of breath. History of pneumonia. TECHNIQUE: CT angiography of the chest was performed with contrast. Coronal and sagittal 3D MIP reconstructions are provided. COMPARISON: Chest CT dated 12/02/2024. FINDINGS: Lungs: Mild intralobular septal thickening throughout both lungs may represent mild interstitial pulmonary edema. Scattered peripheral areas of tree-in-bud type airspace opacity may be infectious or inflammatory in etiology. No pneumothorax or effusion. Mild diffuse bronchial wall thickening. Heart/Mediastinum: Normal heart size. No pericardial effusion. Thoracic esophagus is unremarkable. No suspicious mediastinal or hilar lymph nodes. The thyroid gland is unremarkable. Vasculature: No evidence of acute pulmonary embolism within the limitations of contrast timing. Main pulmonary artery is normal in caliber. No aortic dissection or acute aortic process. No thoracic aortic aneurysm. Coronary artery calcifications are present with multivessel disease. Soft Tissues: Unremarkable. Upper Abdomen: Unremarkable. Bones: No acute osseous abnormality. Mild degenerative changes of the spine. IMPRESSION: 1. No evidence of acute pulmonary embolism or acute aortic process. 2. Mild interstitial pulmonary edema. 3. Scattered areas of nonspecific peripheral tree-in-bud type airspace opacity may r may be infectious or inflammatory and could represent infectious small airway disease/bronchiolitis. Follow-up chest CT can be performed in 3 months. 4. Coronary artery atherosclerotic calcifications are present. ACT 112: Positive. There are findings on this exam that require communication between the performing entity and the patient following Patient Test Result Information Act ([place] ACT 112) guidelines. Electronically signed by Dionte Demarco 02-07-2025 08:36 AM Discharge Plan Visit Data Chief Complaint: Chest Pain Stated Complaint: CHEST PAIN ED Provider: Miguel Angel Raymond Discharge Problem: Acute hypoxemic respiratory failure, Chest pain Patient Disposition: Admitted As Inpatient Condition: Good Discharge Problem: Chest pain Qualifiers: Chest pain type: unspecified Qualified Code(s): R07.9 - Chest pain, unspecified
[2025-02-07 06:49] LABS: Hematocrit (blood only) 37.3 % (37.0-47.0); Hemoglobin 12.7 g/dl (12.0-16.0); Immature Granulocytes # (auto) 0.02 K/uL (0.01-0.20); Immature Granulocytes % (auto) 0.4 %; Mean Corpuscular Hemoglobin 29.3 pg (25.0-34.0); Mean Corpuscular Volume 86.1 fL (80.0-100.0); Platelet Count 262 K/uL (130-400); RDW Standard Deviation 40.2 fL (36.4-46.3); Red Blood Count 4.33 M/uL (4.20-5.40); White Blood Count 5.28 K/ul (4.8-10.8)
[2025-02-07] MEDS: ALBUT/IPRATROP 3MG/0.5MG NEB 3 ML VIAL NEB STA ×2 (06:49→08:50)
[2025-02-07 07:08] LABS: Alanine Aminotransferase 14 U/L (7-52); Albumin Globulin Ratio 1.7 (0.9-2); Albumin Level 4.4 gm/dl (3.4-5.0); Alkaline Phosphatase 71 U/L (34-104); Anion Gap 7 (3-11); Bilirubin,Total 0.4 mg/dl (0.2-1.0); Blood Urea Nitrogen 22 mg/dl (6-23); Calcium 9.2 mg/dl (8.6-10.3); Carbon Dioxide 26 mmol/L (21-32); Chloride 106 mmol/L (98-107); Creatinine Clr Calc Pharmacy 43.2 ml/min; Globulin 2.6 gm/dl (2.5-4.0); Glucose 92 mg/dl (70-99(Fasting)); Lipase 21 U/L (11-82); Potassium 4.1 mmol/L (3.5-5.1); Sodium 139 mmol/L (136-145); Total Protein 7.0 gm/dl (6.0-8.3)
[2025-02-07 07:16] LABS: INR 0.9 (0.9-1.1); Partial Thromboplastin Time 23 Seconds (21-31); Prothrombin Time 9.8 Seconds (9.0-12.0)
[2025-02-07] MEDS: OPTIRAY 320 125ml IV ONE (08:17)
--- NOTE | 2025-02-07 08:20 | XRay Report ---
HISTORY: Chest pain TECHNIQUE: Portable AP radiograph of the chest COMPARISON: Chest radiograph dated 10/01/2024 FINDINGS: air sampling and monitoring leads overlie the chest. No focal lung consolidation. No pneumothorax or pleural effusion. Normal heart size. Left-sided aortic arch. Midline trachea. No acute osseous abnormality. The included upper abdomen is unremarkable. IMPRESSION: No acute cardiopulmonary findings. Electronically signed by Dionte Demarco 02-07-2025 08:20 AM
--- NOTE | 2025-02-07 08:36 | CT Scan Report ---
HISTORY: Chest pain and shortness of breath. History of pneumonia. TECHNIQUE: CT angiography of the chest was performed with contrast. Coronal and sagittal 3D MIP reconstructions are provided. COMPARISON: Chest CT dated 12/02/2024. FINDINGS: Lungs: Mild intralobular septal thickening throughout both lungs may represent mild interstitial pulmonary edema. Scattered peripheral areas of tree-in-bud type airspace opacity may be infectious or inflammatory in etiology. No pneumothorax or effusion. Mild diffuse bronchial wall thickening. Heart/Mediastinum: Normal heart size. No pericardial effusion. Thoracic esophagus is unremarkable. No suspicious mediastinal or hilar lymph nodes. The thyroid gland is unremarkable. Vasculature: No evidence of acute pulmonary embolism within the limitations of contrast timing. Main pulmonary artery is normal in caliber. No aortic dissection or acute aortic process. No thoracic aortic aneurysm. Coronary artery calcifications are present with multivessel disease. Soft Tissues: Unremarkable. Upper Abdomen: Unremarkable. Bones: No acute osseous abnormality. Mild degenerative changes of the spine. IMPRESSION: 1. No evidence of acute pulmonary embolism or acute aortic process. 2. Mild interstitial pulmonary edema. 3. Scattered areas of nonspecific peripheral tree-in-bud type airspace opacity may r may be infectious or inflammatory and could represent infectious small airway disease/bronchiolitis. Follow-up chest CT can be performed in 3 months. 4. Coronary artery atherosclerotic calcifications are present. ACT 112: Positive. There are findings on this exam that require communication between the performing entity and the patient following Patient Test Result Information Act ([place] ACT 112) guidelines. Electronically signed by Dionte Demarco 02-07-2025 08:36 AM
[2025-02-07 08:46] LABS: Influenza A virus by PCR Negative (Neg); Influenza B virus by PCR Negative (Neg); SARS CoV2 RNA(COVID-19) Ceph NEGATIVE (Negative)
[2025-02-07] MEDS: MoRPHine SULFATE 4 MG/ML 1 ML CARP\\VIAL IV STA (08:50)
--- NOTE | 2025-02-07 09:13 | History & Physical Report ---
Date of Service February 07, 2025 Assessment & Plan (1) Hypoxic respiratory failure: Plan: Hypoxic respiratory failure, ?microscopic polyangitis With onset of bilateral mild neck discomfort similar to her prior flares which she attributes to pneumonia. Of note this did not improve with antibiotics, but did improve after a steroid/antibiotic combination in September CTchest shows some mosaicism suspicious for inflammatory versus infectious etiology bilaterally. Read does report pulmonary edema however she has no evidence of fluid overload clinically and suspect that this is inflammatory pANCA/MPO positive on 2 separate testing events in the last 6 months 10/20/24 saw pulmonology and underwent bronchoscopy, no evidence of other hemorrhage at that time. Influenza positive. Cytology showed many PMN leukocytes, histiocytes, benign bronchial annual epithelial cells. Granulomatous inflammation/malignant cells were not noted. Patient had followed with [facility] pulmonology and had talked about a lung biopsy however deferred this as there was the chance that it would not be definitive Has followed with rheumatology at [facility], noted that her P ANCA/MPO testing at presentation is nonspecific Has been following locally with rheumatology, final recommendations over whether to pursue rituximab/prednisone/avacopan therapy pending final review from [facility] ESR 21, CRP 0.62. CRP was last 1.31 12/02/2024 She was last on steroids 10-day course 09/2024 Was treated with ceftriaxone/azithromycin for potential underlying pneumonia She does not have a leukocytosis or cough, but is dyspneic. She has no wheezing on exam Creatinine 1.21, slightly above her baseline around 1.18. She is followed for microscopic hematuria. Creatinine/BUN ratio is normal and she appears near euvolemic. - Trend creatinine daily. If rapidly uptrends/increasing proteinuria --> switch to induction therapy and d/w rheum - Methylpred 60mg IV x1 given in the ER - D/w Dr. Abbasi --> Ok to continue pred 40mg daily for now. Dr. Brown it applications manager tomorrow and to see patient - Lower suspicion for infection etiology. Will continue zpack for atypical converage, pct pending. 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 If no end organ dysfunction and clinically stable, would prefer 2-step and d/c home with o2 and outpatient f/u 02/08 if possible DVT prophylaxis: SCDs, heparin due to borderline creatinine clearance Diet: Regular Disposition: MSO CODE STATUS: Full code (2) Microscopic polyangiitis: (3) P-ANCA and MPO antibodies positive: History of Present Illness Primary Care Provider: Ashlyn Boogie MD 69yo F with history of recurrent neck pain and some exertional dyspnea under workup for pneumonia versus vasculitis for which she is seen rheumatology, [facility], and pulmonology who presents with recurrent episode of bilateral lower neck pain similar to her prior episodes of pneumonia and who continues to have shortness of breath walking up an incline plane and in the ER she has desaturations into the 80s with minimal exertion. Chart review/summary: Following with rheumatology, Dr. Brown for microscopic polyangiitis. Was anticipated to pursue treatment with rituximab/prednisone/avacopan but was awaiting final recommendations from [facility]. S/p bronchoscopy 10/20/2024. No evidence of pulmonary hemorrhage. Normal visual inspection. CTchest 09/2024 with mosaicism? Infectious versus inflammatory. Was treated with doxycycline and prednisone 50 mg burst at that time ? Pulmonary involvement with MPA. No prior evidence of tracheal/subglottic stenosis Creatinine baseline is around 1.18, creatinine on admission 1.21 Trend creatinine daily. 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 Negative infectious history except for flu A CTchest 11/2024 stable tree-in-bud clusters suggestive of chronic inflammation/infection Positive p-ANCA/MPO although this is not specific for MPA. If mild changes w ere considering steroid with or without MMF, severe would need Rituxan and lab monitoring. Repeat p-ANCA/MPO was positive. AAT was normal. Sputum culture was normal. Note follow-up suggested a lung biopsy and in absence of that to consider a steroid course and repeat CT chest chest and PFTs. Did not feel that there was a strong indication for rituximab at that time. Urology: Has been seen for microscopic hematuria. 6-month follow-up Typical MPA induction: Rituximab with 13 pulses of methylprednisolone 1 g/day x 3 days followed by prednisone 1M PK transition Lotus is seen at the bedside. End of August she came into the hospital and though she had pneumonia. "Seems to start around my neck with pain everytime. I don't cold symptoms or cough, but I get discomfort in my neck" Was diagnosed with pneumonia and was given 5 days of antibiotics. I kept trying to connect with my followup doctor, but couldn't get an appointment and came back here the next week and I was sent home with more pills, antibiotics and steroids 'and I felt great!'. I was supposed to followup with my hotbed transfer operator and contacted my home health clinical supervisor. When my home health clinical supervisor saw my records he got a hold of Dr. Dave to say he thought I had microscopic polyangiitis. I was supposed to be on some high powered drip in the hospital twice a month and some steroids, but if I felt like I needed a second opinion that was OK. I contacted [facility] twice and they dont have a solid diagnosis, but werent convinced it was MPA and could be inflammation and infection in my lungs. I was supposed to start a steroid inhaler but [facility] cannot fillthis until tomorrow and I havent gotten it. Discussed a lung biopsy with Dr. Batista, after follow up with his TECHNICAL DELIVERY MANAGER last saturday decided to do the steroid inhaler first. Last night I was feeling fine, but I woke up around 1am and felt pain in my neck area again and gets a little short up breath walking uphill but nothing much worse than normal. I ditzed around for a while, then came to the ER for possible recurrent pneumonia. Gets short of breath easily when walking on an incline plane. DOes ok. Last on steroids was September 30. No treatments since 10 day course of steroids at that time. She notes she would very much like to avoid being in the hospital since her has parkinsons and cannot walk it is important for her not to be away from home. Medical History: Reviewed Medications: Reviewed Surgical History: Reviewed Family history: Reviewed Allergies: Reviewed Social History: No tobacco use Code Status: Full Code Allergies Allergy/AdvReac Type Severity Reaction Status Date / Time amoxicillin Allergy Intermediate hives Verified 12/09/24 08:30 Home Medications Medication Instructions Recorded Confirmed Type cholecalciferol (vitamin D3) 25 25 mcg PO QPM 03/09/21 02/07/25 History mcg (1,000 unit) chewable tablet (Vitamin D3) inhalational spacing device #1 ea 04/24/24 12/09/24 Rx (Aerochamber MV spacer) aspirin 81 mg capsule 81 mg PO QPM 06/15/24 02/07/25 History tiotropium 2.5 mcg-olodaterol 2.5 2 puff inhalation DAILY #4 grams 11/18/24 02/07/25 Rx mcg/actuation mist for inhalation (Stiolto Respimat) omeprazole 40 mg capsule,delayed 40 mg PO DAILY 12/08/24 02/07/25 History release pramipexole 0.25 mg tablet 0 mg PO HS 02/07/25 02/07/25 History Past Med/Surg History Problem List Hypoxic respiratory failure Microscopic polyangiitis Abnormal CT scan of lung 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 Obstructive lung disease Hematuria Encounter for pre-operative examination Bilateral pneumonia Chest pain (Acute) Substernal precordial chest pain (Acute) Obstructive pattern present on pulmonary function testing Pulsatile tinnitus Sensorineural hearing loss (SNHL) of both ears Abnormal PFT Dyspnea Borderline hyperlipidemia (Chronic) no meds Lumbosacral spondylosis (Chronic) Thoracic degenerative disc disease (Chronic) COPD (chronic obstructive pulmonary disease) Tinnitus of right ear Restless leg Medical History GERD (gastroesophageal reflux disease) Pneumonia 2014 Fx radius head-closed many years ago fell on ice and used sling Surgical History H/O neck surgery Cyst removal September 1981 Family History Sister Family history of adverse reaction to anesthesia Cancer Allergies Mother Hypertension Grandfather Asthma Brother Colorectal cancer Other No family history of bleeding disorder Sarcoidosis Social History Smoking Status: Never smoker Second Hand Exposure: No; Do You Dip or Chew Tobacco: No; Hx Alcohol Use: No Hx Substance Use: No Preferred Language: Setswana Communication Ability: Effective Desk Sergeant Required: No Beliefs That Will Affect Care: None marital status: Current Living Situation: Family current occupational status: retired Feels Safe at Home: Yes Assistive Devices: None Physical Exam Physical Exam: General: A&Ox3. NAD. Cooperative. HEENT: Atraumatic, normocephalic. Vision and hearing grossly intact Pulm: CTAB A&P. -wheezes, -rales, -rhonchi. Symmetrical chest rise. No increased work of breathing. No respiratory distress. Cardiac: RRR, -mrg. Radial pulses intact and symmetrical. Abdominal: Nontender, nondistended, soft. BS present. On ambulatory trial immediately desats to around 87% with minimal exertion Results & Data Results & Data Vital Signs (Past 12 Hours) Vital Signs Temp Pulse Pulse Resp BP BP Pulse Ox 02/07/25 09:01 87 L 02/07/25 08:34 78 20 147/84 H 92 02/07/25 08:31 82 02/07/25 07:32 84 20 139/90 90 02/07/25 06:36 36.6 C 84 18 151/88 H 94 02/07/25 06:36 96 02/07/25 06:26 78 17 96 02/07/25 06:13 36.8 C 88 20 160/92 H 96 O2 Del Method 02/07/25 09:01 Room Air 02/07/25 08:34 Room Air 02/07/25 08:31 02/07/25 07:32 Room Air 02/07/25 06:36 Room Air 02/07/25 06:36 Room Air 02/07/25 06:26 Room Air 02/07/25 06:13 Room Air PG Care Time/CCT Total # of Minutes Spent Total Time Spent with Patient: Total time spent is greater than 50% in coordination of care (as documented) at patient's floor/unit and/or counseling patient: Coding Level of Care Code 63795 INT INP/OBS CARE 3/75MIN Diagnoses Hypoxic respiratory failure J96.91 Microscopic polyangiitis M31.7 P-ANCA and MPO antibodies positive R76.8
[2025-02-07] MEDS: cefTRIAXone SODIUM 2,000 MG/50 ML BAG IV STA (09:15)
[2025-02-07] MEDS: AZITHROMYCIN 250 MG TAB PO ONE (09:15)
[2025-02-07] MEDS ORDERED: ACETAMINOPHEN 325 MG TAB PO PRN (13:59)
[2025-02-07] MEDS ORDERED: POLYETHYLENE (MIRALAX) 17 GM PACK PO PRN (13:59)
[2025-02-07] MEDS ORDERED: ONDANSETRON INJ 2 MG/ML 2 ML VIAL IV PRN (13:59)
[2025-02-07 15:15] LABS: Appearance Urine Clear (Clear); Bacteria Urine Automated None Seen (None Seen); Cast Urine Automated 0-2 /lpf (0-2); Epithelial Cell Urine Auto 0-2 /hpf (0-2); Glucose Urine UA Negative (Negative); RBC Urine Automated 0-2 /hpf (0-2); WBC Urine Automated 0-5 /hpf (0-5)
[2025-02-07] MEDS: PRAMIPEXOLE DIHYDROCHLO 0.25 MG TAB PO SCH (19:26)
--- NOTE | 2025-02-07 19:43 | Electrocardiogram Report ---
Test Reason : Blood Pressure : */* mmHG Vent. Rate : 90 BPM Atrial Rate : 90 BPM P-R Int : 106 ms QRS Dur : 74 ms QT Int : 358 ms P-R-T Axes : -6 1 -15 degrees QTcB Int : 437 ms Sinus rhythm with short MN Cannot rule out Inferior infarct (cited on or before 01-Oct-2024) Abnormal ECG When compared with ECG of 01-Oct-2024 20:16, No significant change was found Confirmed by Anton Dai ([id number]) on 02/07/2025 7:42:50 PM Referred By: REFERRED SELF Confirmed By: Anton Dai
[2025-02-07] MEDS: HEPARIN SOD 5,000 UNIT/0.5 ML VIAL SQ SCH (20:15)
[2025-02-07] MEDS: ASPIRIN 81 MG ECTAB PO SCH (20:16)
[2025-02-07] MEDS: CHOLECALCIFEROL 25 MCG (1000 UNITS) TAB PO SCH (20:16)
[2025-02-08 07:55] VITALS: BP 125/77; PULSE 79; RESP 16; TEMP 98.1; O2SAT 92
[2025-02-08 08:16] LABS: Hematocrit (blood only) 35.1 % (37.0-47.0); Hemoglobin 12.2 g/dl (12.0-16.0); Immature Granulocytes # (auto) 0.02 K/uL (0.01-0.20); Immature Granulocytes % (auto) 0.3 %; Mean Corpuscular Hemoglobin 30.0 pg (25.0-34.0); Mean Corpuscular Volume 86.2 fL (80.0-100.0); Platelet Count 255 K/uL (130-400); RDW Standard Deviation 41.1 fL (36.4-46.3); Red Blood Count 4.07 M/uL (4.20-5.40); White Blood Count 6.45 K/ul (4.8-10.8)
[2025-02-08 08:29] LABS: Anion Gap 9.0 (3-11); Blood Urea Nitrogen 26.0 mg/dl (6-23); Calcium 9.4 mg/dl (8.6-10.3); Carbon Dioxide 27.0 mmol/L (21-32); Chloride 103.0 mmol/L (98-107); Creatinine Clr Calc Pharmacy 42.2 ml/min; Glucose 95.0 mg/dl (70-99(Fasting)); Potassium 3.9 mmol/L (3.5-5.1); Sodium 139.0 mmol/L (136-145)
[2025-02-08] MEDS: predniSONE 20 MG TAB PO SCH (09:45)
[2025-02-08] MEDS: AZITHROMYCIN 250 MG TAB PO SCH (09:45)
[2025-02-08] MEDS: UMECLIDINIUM/VILANTEROL 62.5/25MCG 7 PUFFS/INHALER INH SCH (09:47)
--- NOTE | 2025-02-08 12:27 | Discharge Summary ---
Discharge Summary Date of Service February 08, 2025 Principal Dx & Hospital Course #1 = Principal Diagnosis (1) Hypoxic respiratory failure: Hypoxic respiratory failure, ?microscopic polyangitis With onset of bilateral mild neck discomfort similar to her prior flares which she attributes to pneumonia. Of note this did not improve with antibiotics, but did improve after a steroid/antibiotic combination in September CTchest shows some mosaicism suspicious for inflammatory versus infectious etiology bilaterally. Read does report pulmonary edema however she has no evidence of fluid overload clinically and suspect that this is inflammatory pANCA/MPO positive on 2 separate testing events in the last 6 months 10/20/24 saw pulmonology and underwent bronchoscopy, no evidence of other hemorrhage at that time. Influenza positive. Cytology showed many PMN leukocytes, histiocytes, benign bronchial annual epithelial cells. Granulomatous inflammation/malignant cells were not noted. Patient had followed with [facility] pulmonology and had talked about a lung biopsy however deferred this as there was the chance that it would not be definitive Has followed with rheumatology at [facility], noted that her P ANCA/MPO testing at presentation is nonspecific Has been following locally with rheumatology, final recommendations over whether to pursue rituximab/prednisone/avacopan therapy pending final review from [facility] ESR 21, CRP 0.62. CRP was last 1.31 12/02/2024 She was last on steroids 10-day course 09/2024 Was treated with ceftriaxone/azithromycin for potential underlying pneumonia She does not have a leukocytosis or cough, but is dyspneic. She has no wheezing on exam Creatinine 1.21, slightly above her baseline around 1.18. She is followed for microscopic hematuria. Creatinine/BUN ratio is normal and she appears near euvolemic. - Trend creatinine daily. If rapidly uptrends/increasing proteinuria --> switch to induction therapy and d/w rheum - Methylpred 60mg IV x1 given in the ER - D/w Dr. Abbasi --> Ok to continue pred 40mg daily for now. -Dr. Brown footwear production machine operator to see patient - Lower suspicion for infection etiology. Will continue zpack for atypical converage, pct pending. 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 If no end organ dysfunction and clinically stable, would prefer 2-step and d/c home with o2 and outpatient f/u 02/08 if possible DVT prophylaxis: SCDs, heparin due to borderline creatinine clearance Diet: Regular Disposition: MSO CODE STATUS: Full code (2) Microscopic polyangiitis: (3) P-ANCA and MPO antibodies positive: Admission HPI Per Admitting Provider 69yo F with history of recurrent neck pain and some exertional dyspnea under workup for pneumonia versus vasculitis for which she is seen rheumatology, [facility], and pulmonology who presents with recurrent episode of bilateral lower neck pain similar to her prior episodes of pneumonia and who continues to have shortness of breath walking up an incline plane and in the ER she has desaturations into the 80s with minimal exertion. Chart review/summary: Following with rheumatology, Dr. Brown for microscopic polyangiitis. Was anticipated to pursue treatment with rituximab/prednisone/avacopan but was awaiting final recommendations from [facility]. S/p bronchoscopy 10/20/2024. No evidence of pulmonary hemorrhage. Normal visual inspection. CTchest 09/2024 with mosaicism? Infectious versus inflammatory. Was treated with doxycycline and prednisone 50 mg burst at that time ? Pulmonary involvement with MPA. No prior evidence of tracheal/subglottic stenosis Creatinine baseline is around 1.18, creatinine on admission 1.21 Trend creatinine daily. 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 Negative infectious history except for flu A CTchest 11/2024 stable tree-in-bud clusters suggestive of chronic inflammation/infection Positive p-ANCA/MPO although this is not specific for MPA. If mild changes w ere considering steroid with or without MMF, severe would need Rituxan and lab monitoring. Repeat p-ANCA/MPO was positive. AAT was normal. Sputum culture was normal. Note follow-up suggested a lung biopsy and in absence of that to consider a steroid course and repeat CT chest chest and PFTs. Did not feel that there was a strong indication for rituximab at that time. Urology: Has been seen for microscopic hematuria. 6-month follow-up Typical MPA induction: Rituximab with 13 pulses of methylprednisolone 1 g/day x 3 days followed by prednisone 1M PK transition Lotus is seen at the bedside. End of August she came into the hospital and though she had pneumonia. "Seems to start around my neck with pain everytime. I don't cold symptoms or cough, but I get discomfort in my neck" Was diagnosed with pneumonia and was given 5 days of antibiotics. I kept trying to connect with my followup doctor, but couldn't get an appointment and came back here the next week and I was sent home with more pills, antibiotics and steroids 'and I felt great!'. I was supposed to followup with my roustabout crew pusher and contacted my wireless sales associate. When my wireless sales associate saw my records he got a hold of Dr. Dave to say he thought I had microscopic polyangiitis. I was supposed to be on some high powered drip in the hospital twice a month and some steroids, but if I felt like I needed a second opinion that was OK. I contacted [facility] twice and they dont have a solid diagnosis, but werent convinced it was MPA and could be inflammation and infection in my lungs. I was supposed to start a steroid inhaler but [facility] cannot fillthis until tomorrow and I havent gotten it. Discussed a lung biopsy with Dr. Batista, after follow up with his PROTOTYPE CARPENTER last saturday decided to do the steroid inhaler first. Last night I was feeling fine, but I woke up around 1am and felt pain in my neck area again and gets a little short up breath walking uphill but nothing much worse than normal. I ditzed around for a while, then came to the ER for possible recurrent pneumonia. Gets short of breath easily when walking on an incline plane. DOes ok. Last on steroids was September 30. No treatments since 10 day course of steroids at that time. She notes she would very much like to avoid being in the hospital since her has parkinsons and cannot walk it is important for her not to be away from home. Medical History: Reviewed Medications: Reviewed Surgical History: Reviewed Family history: Reviewed Allergies: Reviewed Social History: No tobacco use Code Status: Full Code Discharge Exam GENERAL APPEARANCE NAD, activity normal for age, well developed/ well nourished, no cyanosis, pallor, or diaphoresis. EYES lids/conjunctiva normal. EARS/NOSE/THROAT Mucous membranes moist, nares normal, lips/teeth normal uvula midline without oral pharyngeal erythema, exudate or swelling TMs normal bilaterally. No lymphangitis/lymphedema. HEAD/NECK normocephalic atraumatic, no facial trauma, neck is supple. RESPIRATORY respiratory effort normal, speaks in full sentences, no tripod position, no accessory muscle use. Lungs clear to auscultation without rhonchi, wheezes, rales CARDIAC Regular rate and rhythm, no edema. ABDOMINAL Soft, ND/NT. No evidence of fluid wave. No pulsatile masses on exam, rebound tenderness, Kc sign or pain over Mcburney's point. MUSCLES/EXTREMITIES No abnormal range of motion, no swelling. SKIN Warm, pink and dry. No rashes, dermatoses, petechiae or lesions. NEUROLOGICAL Speech is clear and appropriate. Normal level of consciousness. Gait and coordination are normal. 5/5 strength in all extremities. PSYCH Normal mood and affect. Judgement/competence is appropriate Discharge Plan Discharge Items Patient Disposition: Hospice - Medical Facility Reason For Visit: HYPOXIA, SUSPECTED MPA Discharge Diagnosis: microscopic polyangiitis Condition on Discharge: Good Activity: Resume your previous activity Non-emergency contact: Primary Care Provider Call non-emergency contact if: you have any medication questions Follow-up/Referrals: Ashlyn Boogie MD [Primary Care Provider] - Diet: Regular Addtl Attending Provider Instructions: Follow up with Dr. Brown in 1 week Pending Studies at Discharge: No Stand-Alone Forms: My [facility] Skilled Items Patient informed of condition?: No DNR: No Discharge Level of Care: Other Communicable Disease: No Discharge Prognosis: Stable Lines: None Urinary Catheter: No Medications and DC Order Prescriptions: New prednisone 10 mg tablet 10 mg PO DIRECTED Qty: 20 0RF Rx Instructions: see taper instructions take 4 tabs for 2 days then, take 3 tabs for 2 days then, take 2 tabs for 2 days then, take 1 tab for 2 days Continued Stiolto Respimat 2.5-2.5 mcg/actuation mist 2 puff inhalation DAILY Qty: 4 2RF (DME) Aerochamber MV Spacer See Rx Instructions .MEDSUPPLY Qty: 1 0RF Rx Instructions: As directed aspirin 81 mg capsule 81 mg PO QPM Patient Comments: 02/07- otc unable to verify omeprazole 40 mg capsule,delayed release(DR/EC) 40 mg PO DAILY cholecalciferol (vitamin D3) [Vitamin D3] 25 mcg (1,000 unit) Tablet,Chewable 25 mcg PO QPM Patient Comments: 02/07- otc unable to verify pramipexole 0.25 mg tablet 0 mg PO HS Patient Comments: last filled 12/01 30 day supply #30 Rx Instructions: 1 hr. before bed; Discharge Orders: Discharge Order (Routine); Ordered 02/08/25 Ordered By: Khurram Reinoso Admission Data Admit Date/Time: 02/07/25 10:43 Attending Provider: Khurram Reinoso Admit Provider: Blayne Santos Primary Care Provider: Ashlyn Boogie Other Providers: Blayne Santos; Agata Agudelo Hospital Stay Data Consultations 02/07/25 08:58 ED Decision to Admit Stat 02/08/25 07:44 Consult Pulmonology Routine Diagnostic Imagining Performed 02/07/25 07:40 CT angio chest PE protocol Stat Pending Results Patient Have Any Pending Studies at Discharge: No Discharge Instructions Given to Patient (Per Discharging Provider) Follow up with Dr. Brown in 1 week Total Time Total Time Spent Total Time Spent (In Minutes): 50 Coding Level of Care Code 35638 INP/OBS DISCH >30 MIN Diagnoses Hypoxic respiratory failure J96.91 Microscopic polyangiitis M31.7 P-ANCA and MPO antibodies positive R76.8
== END 2025-02-08 13:16 | disposition home or self-care (01) | DRG 545 ==
LOC: ED 06:04 → 3W 10:43 → SUATTDRO 10:43 → 3W 16:11